=== PATIENT | male | born 1970 ===

== ENCOUNTER 2016-07-20 11:53 | Emergency (ER) | payer BC ==
[2016-07-20 13:04] VITALS: BP 108/81
--- NOTE | 2016-07-20 13:14 | UC ---
Abdominal Pain Male HPI - HPI Summary HPI Summary: DIARRHEA X 1 DAY, SEVER , BEEN GOING EVERY 1 HR + ABDOMINAL CRAMPING, NO VOMITING, NO FEVER, NO CHILLS - History of Current Complaint Chief Complaint: UCGI Stated Complaint: DIARRHEA,ACHY,WEAK,LOST VOICE Time Seen by Provider: 07/20/16 13:06 Hx Obtained From: Patient Onset/Duration: Gradual Onset, Lasting Days - 1, Still Present Timing: Constant Severity Initially: Severe Severity Currently: Moderate Location: Diffuse Radiates: No Character: Cramping Aggravating Factor(s):: Food Alleviating Factor(s): Nothing Associated Signs And Symptoms: Positive: Decreased Appetite, Diarrhea. Negative : Diaphoresis, Fever, Dizzy, Back Pain, Constipation, Urinary Symptoms, Nausea, Vomiting - Allergies/Home Medications Allergies/Adverse Reactions: Allergies Allergy/AdvReac Type Severity Reaction Status Date / Time No Known Allergies Allergy Verified 07/20/16 13:04 PMH/Surg Hx/FS Hx/Imm Hx Previously Healthy: Yes - Surgical History Surgical History: Yes Surgery Procedure, Year, and Place: abd hernia; right knee; rectal polyps, deviated septum - Family History Known Family History: Negative: Diabetes - Social History Alcohol Use: Occasionally Substance Use Type: None Smoking Status (MU): Never Smoked Tobacco - Immunization History Most Recent Influenza Vaccination: none Review of Systems Constitutional: Negative Skin: Negative Eyes: Negative ENT: Negative Respiratory: Negative Cardiovascular: Negative Gastrointestinal: Diarrhea Genitourinary: Negative All Other Systems Reviewed And Are Negative: Yes Physical Exam Triage Information Reviewed: Yes Appearance: Well-Appearing, No Pain Distress, Well-Nourished Vital Signs: Initial Vital Signs Temp 98.6 F 07/20/16 12:59 Pulse 91 07/20/16 12:59 Resp 17 07/20/16 12:59 BP 108/81 07/20/16 12:59 Pulse Ox 98 07/20/16 12:59 Eye Exam: Normal Eyes: Positive: Conjunctiva Clear ENT: Positive: Normal ENT inspection, Hearing grossly normal, Pharynx normal Neck: Positive: Supple, Nontender, No Lymphadenopathy Respiratory: Positive: Chest non-tender, Lungs clear, Normal breath sounds Cardiovascular: Positive: RRR, No Murmur, Pulses Normal Abdomen Description: Positive: Nontender, No Organomegaly, Soft. Negative: CVA Tenderness (R), CVA Tenderness (L), Distended, Guarding Bowel Sounds: Positive: Present Abd Pain Male Course/Dx - Differential Dx/Clinical Impression Provider Diagnoses: VIRAL GASTRITIS Discharge - Discharge Plan Condition: Stable Disposition: HOME Patient Education Materials: Acute Diarrhea (ED) Referrals: Moise Campo MD [Primary Care Provider] - If Needed Additional Instructions: VIRAL INFECTION REST, FLUID, TYLENOL NEEDED FOR PAIN OR FEVER MAY TAKE OTC IMODIUM NEEDED FOR DIARRHEA
== END 2016-07-20 13:19 | disposition home or self-care (01) ==
LOC: UCCORT 11:53
DX: A08.4 Viral intestinal infection, unspecified (principal)
CPT/HCPCS: 99211; G0463